=== PATIENT | female | born 1950 | race Two or more races ===

== ENCOUNTER 2019-06-18 19:55 | Emergency (ER) | payer OTHER ==
[~2019-06-18] VITALS: Ht 167.6 cm; Wt 79.8 kg
[~2019-06-18 19:55] MED LIST: AZATHIOPRINE50 MG PO; DICLOFENAC SODI50 MG PO; HYZAAR 100-121 UDTAB PO; HYZAAR 100-251 UDTAB PO; INDOMETHACIN50 MG; MILLIPRED5 MG PO
== END 2019-06-18 22:07 | disposition home or self-care (01) ==
LOC: ER 19:55
DX: M43.6 Torticollis (principal)

== ENCOUNTER 2019-08-29 15:54 | Emergency (ER) | payer OTHER ==
[~2019-08-29] VITALS: Ht 160 cm; Wt 62.6 kg
[2019-08-29] MEDS ORDERED: DICLOFENAC SODI75 MG PO (18:19)
[2019-08-29] MEDS ORDERED: AMOX-CLAV 875-1 EACH PO (18:19)
== END 2019-08-29 18:37 | disposition home or self-care (01) ==
LOC: ER 15:54
DX: M79.631 Pain in right forearm (principal); L03.113 Cellulitis of right upper limb

== ENCOUNTER 2025-01-24 16:11 | Emergency (ER) | payer OTHER ==
[~2025-01-24] VITALS: Ht 162.6 cm; Wt 61.2 kg
[~2025-01-24 16:11] MED LIST changes: +AMOX-CLAV 875-1 EACH PO; +DICLOFENAC SODI75 MG PO
[2025-01-24] MEDS ORDERED: ACETAMINOPHEN 500 MG GEL..CAP PO ONE (16:30)
[2025-01-24] MEDS ORDERED: ACETAMINOPHEN WITH CODEINE 1 UDTAB TABLET PO ONE (16:45)
== END 2025-01-24 17:38 | disposition home or self-care (01) ==
LOC: ER 16:11
DX: S29.8XXA Other specified injuries of thorax, initial encounter (principal); W10.0XXA Fall (on)(from) escalator, initial encounter; Y93.89 Activity, other specified; Y92.018 Other place in single-family (private) house as the place of occurrence of the external cause; I10 Essential (primary) hypertension; M32.8 Other forms of systemic lupus erythematosus